=== PATIENT | female | born 1950 | race Caucasian/White ===

== ENCOUNTER 2016-10-22 18:51 | Emergency (ER) | payer MEDICARE, OTHER ==
[~2016-10-22] VITALS: Ht 162.6 cm; Wt 67.2 kg
--- OUTSIDE RECORDS SUMMARY | 2016-10-22 18:57 | XMS REPORT | Continuity of Care Document ---
Author Author [facility] Organization [facility] Address [address] [place] [address] ;ext= Care Team Providers Care Shale Processing Technician Name Role Phone H[facility] ([facility]) EV Admitting Physician [phone] HILL ([facility]) EV Attending Physician [phone] Hospital Admission Diagnosis * No data in the System Social History Element Description Code Description Smoking Status Code System Start Date End Date Smoking Status [id number] Current some day smoker SNOMED-CT Problems * No data in the system Medications SNOMED CT Description [id number] Drug Treatment Unknown Allergies * No Allergy Information Available Results Laboratory Results Order: T4 Free Legend: D=Delta, H=High, L=Low, HH=Critical High, LL=Critical Low, AA=Critical Alpha-Numeric, C=Corrected, A=Abnormal LOINC Test Result Flag Range Units Date 3024-7 1T4 Free SerPl-mCnc 1.28 H 0.61-1.12 ng/dl 04/10/2016 07:45 * Performing Lab Footnotes:* [facility] [id number] - [address] [place] [address] - SOLIMAN M ALISON Order: Thyroid Stimulating Hormone Legend: D=Delta, H=High, L=Low, HH=Critical High, LL=Critical Low, AA=Critical Alpha-Numeric, C=Corrected, A=Abnormal LOINC Test Result Flag Range Units Date 1TSH 0.09 L 0.34-5.60 uIU/ml 04/10/2016 07:45 * Performing Lab Footnotes:* [facility] - [id number] - [address] [place] [address] - [facility] Vital Signs * No data in the system Plan of Care * No data in the system Procedures * No data in the system Encounters * No data in the system Immunizations * No data in the system Functional Status * No data in the system Hospital Discharge Instructions * No data in the system
--- OUTSIDE RECORDS SUMMARY | 2016-10-22 18:57 | XMS REPORT | Continuity of Care Document ---
Author Author [facility] Organization [facility] Address [address] [place] [address] ;ext= Care Team Providers Care Autism Teacher Name Role Phone HILL ([facility]) EV Admitting Physician [phone] H[facility] ([facility]) EV Attending Physician [phone] Hospital Admission Diagnosis Code Admission Diagnosis Date HYPOTHYROIDISM, UNSPECIFIED Social History Element Description Code Description Smoking Status Code System Start Date End Date Smoking Status [id number] Never smoker SNOMED-CT Problems * No data in the system Medications SNOMED CT Description [id number] Drug Treatment Unknown Allergies * No Allergy Information Available Results Laboratory Results Order: Lipid Panel Legend: D=Delta, H=High, L=Low, HH=Critical High, LL=Critical Low, AA=Critical Alpha-Numeric, C=Corrected, A=Abnormal LOINC Test Result Flag Range Units Date 2092-07 1Cholest SerPl-mCnc 145 <=200 mg/dL 12/02/2015 07:50 2571-8 1Trigl SerPl-mCnc 58 <=150 mg/dL 12/02/2015 07:50 2085-9 1HDLc SerPl-mCnc 58 23-92 mg/dl 12/02/2015 07:50 50026-5 1LDLc SerPl Calc-mCnc 75 31-179 mg/dl 12/02/2015 07:50 69668-6 1VLDLc SerPl-msCnc 12 8-28 mg/dL 12/02/2015 07:50 1LDL and VLDL calculations not valid when triglycerides >400mg/dl * Performing Lab Footnotes:* [facility] - [id number] - [address] - MADISYN REYES Order: T4 Free Legend: D=Delta, H=High, L=Low, HH=Critical High, LL=Critical Low, AA=Critical Alpha-Numeric, C=Corrected, A=Abnormal LOINC Test Result Flag Range Units Date 3024-7 1T4 Free SerPl-mCnc 1.29 H 0.61-1.12 ng/dl 12/02/2015 07:50 * Performing Lab Footnotes:* [facility] - [id number] - [address] [place] [address] RIAZ REYES Order: Thyroid Stimulating Hormone Legend: D=Delta, H=High, L=Low, HH=Critical High, LL=Critical Low, AA=Critical Alpha-Numeric, C=Corrected, A=Abnormal LOINC Test Result Flag Range Units Date 1TSH 0.10 L 0.34-5.60 uIU/ml 12/02/2015 07:50 * Performing Lab Footnotes:* [facility] - [id number] - [address] [place] [address] RIAZ - MADISYN REYES Order: Vitamin D 25 Hydroxy(OH) Legend: D=Delta, H=High, L=Low, HH=Critical High, LL=Critical Low, AA=Critical Alpha-Numeric, C=Corrected, A=Abnormal LOINC Test Result Flag Range Units Date Vitamin D 25 Hydroxy (OH) TEST SENT TO REFERENCE LAB 61862-1 2Date ref lab test sent [phone],[id number] 12/02/2015 07:50 2DATE RECVD 071,[id number] 12/02/2015 07:50 * Performing Lab Footnotes:* [address] [place] [address] - [id number] - [address] [address] [facility] Vital Signs * No data in the system Plan of Care * No data in the system Procedures * No data in the system Encounters Date Code Diagnosis Status (ICD10) - E039 HYPOTHYROIDISM UNSPECIFIED Active Immunizations * No data in the system Functional Status * No data in the system Hospital Discharge Instructions * No data in the system
--- OUTSIDE RECORDS SUMMARY | 2016-10-22 18:57 | XMS REPORT | Continuity of Care Document ---
Author Author [facility] Organization [facility] Address [address] [place] [address] ;ext= Care Team Providers Care Health Plan Specialist Name Role Phone HILL ([facility]) EV Admitting Physician [phone] [facility] EV Attending Physician [phone] Hospital Admission Diagnosis Code Admission Diagnosis Date [id number] Primary osteoporosis Social History Element Description Code Description Smoking Status Code System Start Date End Date Smoking Status [id number] Unknown if ever smoked SNOMED-CT Problems * No data in the system Medications SNOMED CT Description 142390527 Drug Treatment Unknown Allergies * No Allergy Information Available Results * No data in the system Vital Signs * No data in the system Plan of Care * No data in the system Procedures * No data in the system Encounters Date Code Diagnosis Status (ICD10) - M810 AGE-REL OSTEOPOR W/O CURR PATH FX Active Immunizations * No data in the system Functional Status * No data in the system Hospital Discharge Instructions * No data in the system
--- OUTSIDE RECORDS SUMMARY | 2016-10-22 18:57 | XMS REPORT | Continuity of Care Document ---
Author Author [facility] Organization [facility] Address [address] [place] [address] ;ext= Care Team Providers Care Plastic Battery Assembler Name Role Phone ILYA GOMES Admitting Physician [phone] ILYA GOMES Attending Physician [phone] Hospital Admission Diagnosis * No data in the System Social History Element Description Code Description Smoking Status Code System Start Date End Date Smoking Status [id number] Never smoker SNOMED-CT Problems * No data in the system Medications SNOMED CT Description 934779089 Drug Treatment Unknown Allergies * No Allergy [...]
--- OUTSIDE RECORDS SUMMARY | 2016-10-22 18:57 | XMS REPORT | Continuity of Care Document ---
Author Author [facility] Organization [facility] Address Unknown Phone Unavailable Allergies Active Description Code Type Severity Reaction Onset Reported/Identified Relationship to Patient Clinical Status Yes No Allergy Information Available 143 Unknown N/A 10/07/2015 Medications Problems Date Dx Coded Attending Type Code Diagnosis Diagnosed By 2015 [facility]) EV [place] E03.9 HYPOTHYROIDISM, UNSPECIFIED 2015 [facility] [place] E55.9 VITAMIN D DEFICIENCY, UNSPECIFIED 2015 [facility] EV Staples E78.2 MIXED HYPERLIPIDEMIA 2015 [facility]) EV [place] R94.6 ABNORMAL RESULTS OF THYROID FUNCTION STUDIES 10/22/2015 [facility]) EV Staples M81.0 AGE-RELATED OSTEOPOROSIS WITHOUT CURRENT PATHOLOGICAL FRACTURE 10/22/2015 [facility]) EV [place] M85.88 OTHER SPECIFIED DISORDERS OF BONE DENSITY AND STRUCTURE, OTHER SITE 10/22/2015 [facility] EV [place] Z78.0 ASYMPTOMATIC MENOPAUSAL STATE 10/23/2015 [facility]) EV Staples M81.0 AGE-RELATED OSTEOPOROSIS WITHOUT CURRENT PATHOLOGICAL FRACTURE 10/23/2015 [facility]) EV Staples V58.68 SKILLED NURSING (CURRENT) USE OF BISPHOSPHONATES 10/23/2015 [facility]) EV [place] V58.83 ENCOUNTER FOR THERAPEUTIC DRUG MONITORING 10/23/2015 [facility] EV [place] Z51.81 ENCOUNTER FOR THERAPEUTIC DRUG LEVEL MONITORING 10/23/2015 [facility] EV [place] Z79.83 HEALTH AND WELLNESS ADVISOR (CURRENT) USE OF BISPHOSPHONATES 10/29/2015 TABTAHA GOMES Z12.31 ENCOUNTER FOR SCREENING MAMMOGRAM FOR MALIGNANT NEOPLASM OF BREAST 10/29/2015 TABATHA GOMES Z80.3 FAMILY HISTORY OF MALIGNANT NEOPLASM OF BREAST 12/16/2015 [facility]) EV Staples E03.9 HYPOTHYROIDISM, UNSPECIFIED 12/16/2015 [facility]) EV [place] E55.9 VITAMIN D DEFICIENCY, UNSPECIFIED 04/19/2016 HILL ([facility]) EV [place] E03.8 OTHER SPECIFIED HYPOTHYROIDISM 04/19/2016 [facility] EV Staples M81.0 AGE-RELATED OSTEOPOROSIS WITHOUT CURRENT PATHOLOGICAL FRACTURE 04/19/2016 [facility] EV Staples V58.83 ENCOUNTER FOR THERAPEUTIC DRUG MONITORING 04/19/2016 [facility] EV [place] Z51.81 ENCOUNTER FOR THERAPEUTIC DRUG LEVEL MONITORING 04/19/2016 [facility] EV [place] Z79.83 HEALTH AND WELLNESS ADVISOR (CURRENT) USE OF BISPHOSPHONATES Procedures Results Encounters ACCT No. Visit Date/Time Discharge Status Pt. Type Provider Facility Loc./Unit Complaint [id number] 10/05/2015 00:00:00 [facility] Outpatient JARAD MENDOZA Z01.419
--- OUTSIDE RECORDS SUMMARY | 2016-10-22 18:57 | XMS REPORT | Continuity of Care Document ---
Author Author [facility] Organization [facility] Address [address] [place] [address] ;ext= Care Team Providers Care Automatic Spinning Lathe Operator Name Role Phone [facility] ([facility]) EV Admitting Physician [phone] H[facility] ([facility]) EV Attending Physician [phone] Hospital Admission Diagnosis Code Admission Diagnosis Date [id number] Primary osteoporosis Social History Element Description Code Description Smoking Status Code System Start Date End Date Smoking Status [id number] Current some day smoker SNOMED-CT Problems * No data in the system Medications SNOMED CT Description 630658360 Drug Treatment Unknown Allergies * No Allergy Information Available Results Laboratory Results Order: T4 Free Legend: D=Delta, H=High, L=Low, HH=Critical High, LL=Critical Low, AA=Critical Alpha-Numeric, C=Corrected, A=Abnormal LOINC Test Result Flag Range Units Date 3024-7 1T4 Free SerPl-mCnc 1.28 H 0.61-1.12 ng/dl 04/10/2016 07:45 * Performing Lab Footnotes:* [id number] - [address] [place] [address] - SOLIMAN M ALISON Order: Thyroid Stimulating Hormone Legend: D=Delta, H=High, L=Low, HH=Critical High, LL=Critical Low, AA=Critical Alpha-Numeric, C=Corrected, A=Abnormal LOINC Test Result Flag Range Units Date 1TSH 0.09 L 0.34-5.60 uIU/ml 04/10/2016 07:45 * Performing Lab Footnotes:* [facility] [id number] - [address] [place] [address] - [facility] Vital Signs * No data in the [...]
--- OUTSIDE RECORDS SUMMARY | 2016-10-22 18:57 | XMS REPORT | Continuity of Care Document ---
Author Author [facility] Organization [facility] Address [address] [place] [address] ;ext= Care Team Providers Care Screen And Cyclone Repairer Name Role Phone ILYA GOMES Admitting Physician [phone] ILYA GOMES Attending Physician [phone] Hospital Admission Diagnosis Code Admission Diagnosis Date ENCOUNTER FOR SCREENING MAMMOGRAM FOR MALIGNANT NEOPLASM OF BREAST Social History Element Description Code Description Smoking Status Code System Start Date End Date Smoking Status [id number] Never smoker SNOMED-CT Problems * No data in the system Medications SNOMED CT Description 033310960 Drug Treatment Unknown Allergies * No Allergy Information Available Results Radiology Results Order: MMSCBIC Mammogram Aleksandar Screening Digital w/CAD* Exam Completion Date:10/11 14:00 Mammogram Aleksandar Screening Digital w/CADComparison: Comparison is made to previous exam dated 03/21/2013. Findings: The breast tissue is heterogeneously dense, which may lower thesensitivity of mammography.There is no dominant mass, suspicious cluster of microcalcifications, or otherevidence to indicate malignancy.IMPRESSION: Negative mammogram without evidence of malignancy. BI-RADS: 1 (NEGATIVE)Released By SHAHLA HOLLINS, MDDate: 10/13/2015 12:58 Vital Signs * No data in the system Plan of Care * No data in the system Procedures * No data in the system Encounters Date Code Diagnosis Status (ICD10) - Z1231 ENC SCR MAMMO MALIG NEOPLASM BREAST Active Immunizations * No data in the system Functional Status * No data in the system Hospital Discharge Instructions * No data in the system
--- OUTSIDE RECORDS SUMMARY | 2016-10-22 18:57 | XMS REPORT ---
Author [facility] Organization Unknown Address Unknown Phone Unavailable Care Team Providers Care Smoking Pipe Mounter Name Role Phone PP Unavailable Reason For Visit Chief Complaint Z01.419 Social History Functional Status Vital Signs Results Problems Encounter Diagnosis No relevant problems exist. Encounters Encounter Diagnosis No relevant problems exist. Plan of Care Procedures No relevant procedures performed. Immunizations No immunizations administered or ordered. Hospital Course Hospital Discharge Instructions Allergies, Adverse Reactions, Alerts * Latex Allergy has not been assessed. * IV Contrast Allergy has not been assessed. Medication Medication reconciliation has not been performed.
--- OUTSIDE RECORDS SUMMARY | 2016-10-22 18:57 | XMS REPORT | Continuity of Care Document ---
Author Author [facility] Organization [facility] Address [address] [place] [address] ;ext= Care Team Providers Care Pantry Cook Name Role Phone HILL ([facility]) EV Admitting Physician [phone] [facility] EV Attending Physician [phone] Hospital Admission Diagnosis * No data in the System Social History Element Description Code Description Smoking Status Code System Start Date End Date Smoking Status [id number] Unknown if ever smoked SNOMED-CT Problems * No data in the system Medications SNOMED CT Description 779045619 Drug Treatment Unknown Allergies * No Allergy [...]
--- OUTSIDE RECORDS SUMMARY | 2016-10-22 18:57 | XMS REPORT | Continuity of Care Document ---
Author Author [facility] Organization [facility] Address [address] [place] [address] ;ext= Care Team Providers Care Soft Work Cigar Machine Operator Name Role Phone HILL ([facility]) EV Admitting Physician [phone] HLIL ([facility]) EV Attending Physician [phone] Hospital Admission Diagnosis Code Admission Diagnosis Date [id number] Primary osteoporosis Social History Element Description Code Description Smoking Status Code System Start Date End Date Smoking Status 791061978 Never smoker SNOMED-CT Problems * No data in the system Medications SNOMED CT Description 694980679 Drug Treatment Unknown Allergies * No Allergy Information Available Results Radiology Results Order: DEXAAXL DEXA* Exam Completion Date:10/05/2015 10:15 DEXAComparison: NONE-BASELINE (THIS IS NEW BASELINE-[facility] The average bone mineral density of the lumbar spine from L1- L4 yields a Tscore of -2.2 consistent with LOW BONE MASS/OSTEOPENIA.The average bone mineral density of the LT NECK yields a T score of -3.1consistent with OSTEOPOROSIS.Densitometric WHO Classification: OSTEOPOROSIS.Released By DUGLAS GRANTate: 10/05/2015 10:54 Vital Signs * No data in the [...]
[2016-10-22 19:03] VITALS: TEMP 98.3; Ht 162.6 cm; Wt 67.2 kg
--- NOTE | 2016-10-22 19:17 | ERPDOC ---
Departure Disposition Decision Date: October 22, 2016 Disposition Decision Time: 19:43 Disposition: 01 DISCHARGED HOME, SELF-CARE Impression Impression Impression: Primary Impression: Wrist fracture Encounter type: initial encounter Fracture type: closed Laterality: right Qualified Codes: S62.101A - Fracture of unspecified carpal bone, right wrist , initial encounter for closed fracture Severity: Moderate Condition: Improved Seen By: Physician only Patient Instructions: Wrist Injury (ED) Problems/Meds/Labs Reviewed?: Yes Medications reviewed and manag: Yes Additional Instructions: Keep wrist in splint, clean, and dry Ice and elevate as much as possible Use O'[place]on 5 mg one to 2 tablets every 6 hours as needed for pain OR Tylenol 1000 mg 4 times daily Call your doctor first thing Sunday to arrange follow-up appointment for re-x-ray of the wrist on Sunday or Sunday Follow up care ordered?: Yes Mental Status: Alert Scripts Hydrocodone/Acetaminophen (O'[place]on 5-325 Tablet) 5-325 Tablet 1-2 TAB PO QID Y for PAIN, #30 Prov: NIKITA PENNINGTON MD 10/22/16 HPI General Chief Complaint: Upper Extremity Injury Stated Complaint: FELL/ PAIN RT WRIST Time Seen by Provider: 19:10 Source: patient Exam Limitations: no limitations HPI Hand/Forearm Initial Comments Patient fell one stair onto the kitchen floor yesterday, carrying a plate for a family event. Patient sustained bruises to her left medial knee, right anterior chest wall, and has pain and swelling to the right distal radius/proximal first metatarsal. Patient has been using mrkm-sag-cocvbrp pain medication for the day , which controls her pain during the day, but at night the pain increases. Patient drove back from [place] today, and his attending and other family event here in town before returning tomorrow to [place], her home town. Occurred At: home Onset: Rapid Duration: 12-24 hrs Severity: moderate 1 - Pain, swelling, tenderness Method of Injury: fell Associated Symptoms: bruising, pain with extension, pain with flexion, pain with grasp, swelling, DENIES: pallor, red streaks, redness, weakness Allergies: Coded Allergies: NKDA (Verified Allergy, Unknown, 10/22/16) Past History Patient Medical History Problem List Updates: Osteoporosis Past Medical History Metabolic: hypercholesterolemia, hypertension, hypothyroidism Surgical History General: appendix Reproductive/: tubal ligation Social History Tobacco Usage: none Alcohol Usage: none Drug Usage: none Record Review Pertinent history updated: Yes Review of Systems Constitutional Constitutional: DENIES: appetite decrease, appetite increase, chills, dizziness , fever, weakness ENMT Ears: DENIES: pain Hearing: DENIES: hearing loss, tinnitus Balance: DENIES: vertigo Mouth/Throat: DENIES: change in swallowing, change in voice, hoarsness, painful swallowing, sore throat Cardiovascular Cardiac: DENIES: chest pain, dyspnea on exertion Rhythm/Rate: DENIES: irregular beat, palpitations, tachycardia Vascular: DENIES: pedal edema Pulmonary Respiratory: DENIES: cough, dyspnea, pleuritic chest pain GI Upper Abdomen: DENIES: dysphagia, heartburn/indigestion, nausea, pain, vomiting Lower Abdomen: DENIES: blood in stool, constipation, diarrhea, pain Musculoskeletal General: joint pain, joint swelling, pain, tenderness, DENIES: cramps, weakness Integumentary Skin: DENIES: rash, sores Neurological General: DENIES: headache, numbness, tingling, vertigo, weakness Psychiatric Psychiatric: DENIES: anxiety, depression, nervousness Exam General General Nourishment: well nourished, well developed, appears stated age, no acute distress General Body Habitus: well groomed Vital Signs: RN Vital Signs have been reviewed: Yes Fastrak Hand/Forearm Comments Right distal radius/proximal first metacarpal shows swelling and diffuse tenderness without bony crepitus or obvious deformity. Patient is neurovascularly intact, with full range of motion and function despite pain. Small minimally tender area of ecchymosis to the left lateral anterior knee, with no bony tenderness, no deformity, no crepitus. Patient is able to bear weight without difficulty. Patient also has a small area of ecchymosis to the anterior right chest wall with plate struck her chest, has no tenderness of the ribs, no sore pain surrounding anything but the immediate ecchymotic area. Patient has no difficulty breathing and lungs are clear bilaterally. Neurologic RN Documented GCS Eye Opening: Verbal: Motor: Total: Progress Results/Orders Orders Procedure Category Date Status Time Wrist Right 2 View RAD 10/22/16 Taken Progress Progress Patient declines pain medication at this time Wrist films - questionable trapezium fracture, nondisplaced Patient placed in room a foam volar splint and Jose wrap, O'Fallon for pain, and patient is to have x-rays repeated in 2-3 days for clarification NIKITA PENNINGTON MD October 22, 2016 19:17
--- OUTSIDE RECORDS SUMMARY | 2016-10-22 19:23 | XMS REPORT | Continuity of Care Document ---
Author Author [facility] Organization [facility] Address Unknown Phone Unavailable Allergies Active Description Code Type Severity Reaction Onset Reported/Identified Relationship to Patient Clinical Status Yes No Allergy Information Available 143 Unknown N/A 10/07/2015 Medications Problems Date Dx Coded Attending Type Code Diagnosis Diagnosed By 2015 [facility]) EV [place] E03.9 HYPOTHYROIDISM, UNSPECIFIED 2015 [facility]) EV [place] E55.9 VITAMIN D DEFICIENCY, UNSPECIFIED 2015 [facility]) EV Staples E78.2 MIXED HYPERLIPIDEMIA 2015 [facility]) EV [place] R94.6 ABNORMAL RESULTS OF THYROID FUNCTION STUDIES 10/22/2015 [facility]) EV Staples M81.0 AGE-RELATED OSTEOPOROSIS WITHOUT CURRENT PATHOLOGICAL FRACTURE 10/22/2015 [facility]) EV [place] M85.88 OTHER SPECIFIED DISORDERS OF BONE DENSITY AND STRUCTURE, OTHER SITE 10/22/2015 [facility]) EV [place] Z78.0 ASYMPTOMATIC MENOPAUSAL STATE 10/23/2015 [facility]) EV Staples M81.0 AGE-RELATED OSTEOPOROSIS WITHOUT CURRENT PATHOLOGICAL FRACTURE 10/23/2015 [facility]) EV Staples V58.68 ALF (CURRENT) USE OF BISPHOSPHONATES 10/23/2015 [facility]) EV [place] V58.83 ENCOUNTER FOR THERAPEUTIC DRUG MONITORING 10/23/2015 [facility]) EV [place] Z51.81 ENCOUNTER FOR THERAPEUTIC DRUG LEVEL MONITORING 10/23/2015 [facility]) EV [place] Z79.83 COTTON CLEANER (CURRENT) USE OF BISPHOSPHONATES 10/29/2015 TABATHA GOMES Z12.31 ENCOUNTER FOR SCREENING MAMMOGRAM FOR MALIGNANT NEOPLASM OF BREAST 10/29/2015 TABATHA GOMES Z80.3 FAMILY HISTORY OF MALIGNANT NEOPLASM OF BREAST 12/16/2015 [facility]) EV Staples E03.9 HYPOTHYROIDISM, UNSPECIFIED 12/16/2015 [facility]) EV [place] E55.9 VITAMIN D DEFICIENCY, UNSPECIFIED 04/19/2016 [facility] EV [place] E03.8 OTHER SPECIFIED HYPOTHYROIDISM 04/19/2016 [facility] EV Staples M81.0 AGE-RELATED OSTEOPOROSIS WITHOUT CURRENT PATHOLOGICAL FRACTURE 04/19/2016 [facility] EV Staples V58.83 ENCOUNTER FOR THERAPEUTIC DRUG MONITORING 04/19/2016 [facility] [place] Z51.81 ENCOUNTER FOR THERAPEUTIC DRUG LEVEL MONITORING 04/19/2016 [facility] [place] Z79.83 COTTON CLEANER (CURRENT) USE OF BISPHOSPHONATES Procedures Results Encounters ACCT No. Visit Date/Time Discharge Status Pt. Type Provider Facility Loc./Unit Complaint [id number] 10/05/2015 00:00:00 [facility] Outpatient JARAD MENDOZA Z01.419
--- OUTSIDE RECORDS SUMMARY | 2016-10-22 19:23 | XMS REPORT ---
Author Author [facility] Organization Unknown Address Unknown Phone Unavailable Care Team Providers Care Combustion Analyst Name Role Phone PP Unavailable Reason For [...]
[2016-10-22] MEDS ORDERED: ATOR40TA64 PO (19:30)
[2016-10-22] MEDS ORDERED: LEVO150T11 PO (19:30)
[2016-10-22] MEDS ORDERED: LEVO137T2 PO (19:30)
[2016-10-22] MEDS ORDERED: METO-275 PO (19:30)
--- NOTE | 2016-10-22 19:30 | NUR ---
IMAGING IN ROOM FOR PORTABLE XR AT THIS TIME.
[2016-10-22] MEDS ORDERED: SERT100T12 PO (19:33)
[2016-10-22] MEDS ORDERED: DENO60DI INJ (19:33)
[2016-10-22] MEDS ORDERED: IBUP-1724 PO (19:33)
[2016-10-22] MEDS ORDERED: CHOL500050 PO (19:33)
[2016-10-22] MEDS ORDERED: HYDR-4246 PO (19:45)
[2016-10-22] MEDS ORDERED: HYDROCODONE/APAP 5/325 (PrePack) SENT HOME ONE (20:00)
[2016-10-22 20:07] VITALS: BP 163/94; PULSE 70; RESP 12; O2SAT 98
--- NOTE | 2016-10-22 20:07 | NUR ---
DEPART PT IS DISCHARGED AT THIS TIME, INSTRUCTIONS ARE REVIEWED AND UNDERSTANDING IS VOICED. PT LEAVES AMBULATORY, SPLINT IN PLACE ON R WRIST.
--- NOTE | 2016-10-23 10:15 | DI ---
Indication: ITS.REASON: FALL, DISTAL RADIUS/FIRST METACARPAL INJURY PROCEDURE: WRIST RIGHT 2 VIEW: Encounter: Initial Comparison: None Findings: There is no acute fracture, dislocation or malalignment identified. Bony overlap severely limits evaluation of the trapezium and trapezoid bones. Mild degenerative change at the triscaphe joint. Impression: No acute osseous abnormality. Bony overlap limiting evaluation of a portion of the carpal bones. Repeat four view wrist radiographs could be performed there is continued pain or clinical concern for fracture. .
== END 2016-10-22 20:07 | disposition home or self-care (01) ==
LOC: ED 18:51
DX: S62.101A Fracture of unspecified carpal bone, right wrist, initial encounter for closed fracture (principal); S80.02XA Contusion of left knee, initial encounter; S20.211A Contusion of right front wall of thorax, initial encounter; W10.8XXA Fall (on) (from) other stairs and steps, initial encounter; Y93.89 Activity, other specified; Y92.008 Other place in unspecified non-institutional (private) residence as the place of occurrence of the external cause; Y99.8 Other external cause status